=== PATIENT | male | born 1965 | race African-American/Black ===

== ENCOUNTER 2019-08-19 10:14 | Day surgery (SDC) | payer OTHER ==
[2019-08-19] VITALS (10 sets, daily range): BP systolic 122–143; BP diastolic 68–91; PULSE 62–78; TEMP 98.4
[~2019-08-19] VITALS: Ht 180.3 cm; Wt 146.1 kg
[~2019-08-19 10:14] MED LIST: ANTI-FUNGAL1% TP; ASMANEX TW0.22 MG/A1 IH; COZAAR 50MG50 MG/TAB PO; HCTZ 25MG TAB25 MG PO; PROAIR HFA0.09 MG/AC IH; TRIAMCINOLONE AC0.13 TP; ZOCOR 80MG80 MG PO
[2019-08-19] MEDS ORDERED: ASPIRIN E.C. 8181 MG PO (10:30)
[2019-08-19] MEDS ORDERED: TOPROL XL 25MG25 MG PO (10:30)
[2019-08-19] MEDS ORDERED: DESYREL 50MG50 MG PO (10:31)
[2019-08-19] MEDS ORDERED: ZOLOFT 100MG100 MG PO (10:32)
[2019-08-19 11:34] LABS: HEMATOCRIT 40.9 % (42.0-52.0); HEMOGLOBIN 13.5 g/dl (13.5-18.0); MEAN CELL VOLUME 87 fl (80.0-100.0); MEAN CORPUSCULAR HEMOGLOBIN 29 pg (27.0-31.0); MEAN CORPUSCULAR HGB CONC 33 g/dl (33.0-37.0); MEAN PLATELET VOLUME 10.4 fl (7.4-10.4); PLATELET COUNT 253 K/mm3 (130-400); RED BLOOD COUNT 4.73 M/mm3 (4.20-5.60)
[2019-08-19 11:39] LABS: PROTHROMBIN TIME 10.7 SECONDS (9.7-12.8)
[2019-08-19 11:45] LABS: CALCIUM 9.5 mg/dL (8.4-10.2); CREATININE, serum 0.84 (0.66-1.25); POTASSIUM 3.5 mmol/L (3.4-5.0)
--- NOTE | 2019-08-19 13:23 | NUR ---
SEE MERGE DOCUMENTATION FOR MEDICATION ADMINISTRATION AND INTRA/POST PROCEDURE SEDATION ASSESSMENTS.
--- NOTE | 2019-08-19 14:35 | NUR ---
Pt back from director of cath lab, pt is awake, alert, reg and unlabored resps, TR band in place, cms intact distal. pt aware of poc. lunch tray ordered.
--- NOTE | 2019-08-19 17:20 | NUR ---
Pt is ready for departure. Pt has recovered well, he has been able to eat and drink with no problem, he has been ambulatory with steady gait to br. Rt radial puncture site looks good without any bleeding or hematoma since TR band was removed, site dressed with bandaid and mild pressure dressing of 2x2 and coban. iv dc'd with cath intact, dressing applied. I have reviewed dc instructions with pt and he denied any questions at time of departure. Pt is escorted to exit via wheelchair.
== END 2019-08-19 17:20 | disposition home or self-care (01) ==
LOC: COL.CAR 10:14
PROVIDERS: Internal Medicine Cardiovascular Disease
DX: I20.0 Unstable angina (principal); R94.39 Abnormal result of other cardiovascular function study; I10 Essential (primary) hypertension; G47.33 Obstructive sleep apnea (adult) (pediatric); E66.9 Obesity, unspecified; E78.5 Hyperlipidemia, unspecified; J44.9 Chronic obstructive pulmonary disease, unspecified; F32.9 Major depressive disorder, single episode, unspecified; Z88.8 Allergy status to other drugs, medicaments and biological substances
CPT/HCPCS: J1644; J2250; J3010; Q9967